=== PATIENT | female | born 1990 | race Caucasian/White ===

== ENCOUNTER 2021-09-13 22:56 | Emergency (ER) | payer BC, SELFPAY ==
[2021-09-13 23:04] VITALS: BP 127/81; PULSE 93; RESP 16; TEMP 36.9; O2SAT 98
--- NOTE | 2021-09-13 23:15 | DI.CT_ITS ---
Exam(s) CT ABDOMEN PELVIS W EXAM: CT ABDOMEN PELVIS W INDICATION: right sided abdomen pain. COMPARISON: No exams were available for comparison TECHNIQUE: FINDINGS: CT examination of the abdomen and pelvis was performed with intravenous infusion of 100 cc of Omnipaq ue 350. Images obtained through the lung bases are unremarkable. The liver is unremarkable in appearance with apparent incidental left lobe hepatic cyst noted. Gallbladder and bile ducts are CT normal. Pancreas appears normal. Spleen is unremarkable in appearance except for tiny calcifications consistent with healed granulomas .. Adrenals appear normal. The kidneys are unremarkable with no evidence of hydronephrosis, nephrolithiasis, or renal mass.. Ur inary bladder unremarkable. Abdominal aorta is of normal diameter and no major vascular abnormality is seen. No abdominal wall hernia. No abdominal or pelvic adenopathy. BOOKING AGENT structures appear intact with an IUD in appropriate position in the uterus.. Appendix is normal. No evidence of diverticulitis or bowel obstruction. IMPRESSION: Negative CT examination of the abdomen and pelvis. RADIATION DOSE DELIVERED: 746.64mGy.cm Total DLP 746.64mGy.cm Total DLP !Error CTDIvol RADIATION OPTIMIZATION: All CT scans at this facility use at least one of these dose optimization te chniques: automated exposure control; mA and/or kV adjustment per patient size (includes targeted exa ms where dose is matched to clinical indication); or iterative reconstruction.
--- NOTE | 2021-09-13 23:30 | ED.GENADUL_ITS ---
Discharge Plan Disposition Patient Disposition: HOME Condition: Stable Discharge Details Chief Complaint: Abd Prob Clinical Impression: Abdominal pain Primary Care Provider: None,None ED Provider: Keith Jorgensen Home Meds and New Rx's Prescriptions: No Action No Known Home Meds Discharge Instructions Instructions: Abdominal Pain (ED) Additional Instructions: your blood work and cat scan did not show concerning findings at this time and your iud appeared in normal position follow up with your primary care provider if symptoms continue if you feel more ill, have severe worsening pain or persistent vomiting return to the emergency department Medical Decision Making 31 yo female who denies chronic medical problems comes in with abdominal pain and cramping starting when she woke up this morning. She states she has never had pain like this before and has denies prior abdominal surgeries. She can't think of anything that makes the pain better or worse. she localizes the pain to the lower abdomen and states it is sharp and cramping, no vaginal bleeding or discharge, no fevers, chills, n/v. She arrives stable, has no upper abdomen tenderness, is tender in the rlq to deep palpation. Suspect this could be ovarian cyst but given location will obtain ct to evaluate for appendicitis. pt stable and feels improved, only has minimal tenderness with deep palpation to the rlq no guarding. CT and labs unremarkable. Discussed with pt and given reassuring workup feel she is stable for d/c. She will f/u with pcp if symptoms continue and return precautions given Differential Diagnosis Differential Diagnosis: appendicitis, ovarian cyst Imaging Data Radiologic Study: Attestation: I personally reviewed and interpreted this imaging study as follows: Imaging: CT Scan Radiologist's impression: no acute findings Lab Data Lab results reviewed: Yes I reviewed the patient's lab results. HPI General Mode of arrival: ambulatory . Date/Time Provider Initiated Documentation: 09/13/21 23:01 . Limitations to Documentation: no limitations . Information obtained by: patient . History of Present Illness 31 year old F presents to the emergency department with the chief complaint of abdominal pain, described as moderate, Quality is described as aching, Patient started experiencing this hour(s) (12) and it has been constant. No relieving factors improve symptom(s), No exacerbating factors reported . Patient notes no other symptoms.. Patient did receive the following treatments prior to arrival, none Related Data Home Medications Medication Instructions Recorded Confirmed Unknown [No Known Home Meds] 09/13/21 09/13/21 Allergies Allergy/AdvReac Type Severity Reaction Status Date / Time sulfamethoxazole Allergy Unverified 09/13/21 23:14 [From Bactrim] trimethoprim [From Bactrim] Allergy Unverified 09/13/21 23:14 General Stated Complaint: Abd Prob MARGE: 3 Review of Systems All systems reviewed & are unremarkable except as noted in HPI and below Constitutional Constitutional: Denies chills and Denies fever(s) Cardiovascular Cardiovascular: Denies chest pain and Denies dyspnea Respiratory Respiratory: Denies cough and Denies dyspnea Gastrointestinal Gastrointestinal: Denies nausea and Denies vomiting Genitourinary Genitourinary: Denies dysuria Musculoskeletal Musculoskeletal: Denies joint swelling Integumentary/Breasts Skin/Breast: Denies rash PFSH All Active Problems (Updated 09/14/21 @ 00:59 by Keith Jorgensen MD) Abdominal pain (Acute) Medical History (Updated 09/14/21 @ 00:59 by Keith Jorgensen MD) Female bladder prolapse IBS (irritable bowel syndrome) IBS (irritable bowel syndrome) Social History Smoking/Tobacco Use Status: Never Smoking risk assessment performed?: Yes Alcohol Intake: never Drug use: Never Substance use type: does not use Do you feel safe at home: Yes Do you feel safe in your relationship?: Yes Exam Const General: no acute distress Orientation: alert HENMO Head: normal to inspection Ears: external ears normal General nose exam: external nose normal Mouth: moist mucous membranes Eyes General: appearance normal, both eyes and all related structures Neck Neck: normal visual inspection Resp Effort & Inspection: normal respiratory effort and able to speak in complete sentences Cardio Rate: regular rate GI Palpation: soft and tender Skin General skin exam: no rashes or lesions noted Neuro General: patient alert and patient oriented x3 Extrem General: normal to inspection Psych Mental Status: mental status grossly normal Course Vital Signs Vital signs: Vital Signs Temperature 36.9 C 09/13/21 23:04 Pulse 93 H 09/13/21 23:04 Respiratory Rate 16 09/13/21 23:04 Blood Pressure 127/81 09/13/21 23:04 Pulse Oximetry 98 09/13/21 23:04 Temperature 36.9 C 09/13/21 23:04 Temperature Source Tympanic 09/13/21 23:04 Pulse 93 H 09/13/21 23:04 Respiratory Rate 16 09/13/21 23:04 Respiratory Effort Non-Labored 09/13/21 23:09 Blood Pressure 127/81 09/13/21 23:04 Blood Pressure Position Sitting 09/13/21 23:04 Pulse Oximetry 98 09/13/21 23:04 Oxygen Delivery Method Room Air 09/13/21 23:04 Oxygen Flow Rate 0 09/13/21 23:04 Pain Level 5 09/13/21 23:04 Comment 09/13/21 23:04
[2021-09-13 23:40] LABS: Abs Immature Grans 0.03 10^3/uL (0.0-0.06); Absolute Basophil Count 0.05 10^3/uL (0.0-0.2); Absolute Eosinophil Count 0.22 10^3/uL (0.0-0.7); Absolute Lymphocyte Count 2.59 10^3/uL (1.2-3.4); Absolute Monocyte Count 0.72 10^3/uL (0.1-0.8); Basophils % 0.5; Eosinophils % 2.1; HCT 38.1 % (36.0-46.0); HGB 12.9 g/dL (11.2-15.7); Immature Grans % 0.3; Lymphocytes % 25.1; MCH 31.1 pg (27.0-33.0); MCHC 33.9 % (32.0-36.0); MCV 92 fL (80-95); MPV 9.5 fL (8.0-11.0); Platelet Count 225 10^3/uL (130-400); RBC 4.15 10^6/uL (3.93-5.22); RDW 11.6 % (11.7-14.6); RDW-SD 39.1 fL; WBC 10.31 10^3/uL (4.4-10.8)
[2021-09-13 23:48] LABS: Bilirubin Negative (Negative); Blood Negative (Negative); Clarity Sl Cloudy (Clear); Glucose Negative (Negative); Ketones 15 mg/dL (Negative); Leukocyte Esterase Negative (Negative); Nitrite Negative (Negative); Specific Gravity >= 1.030 (1.005-1.025); Urobilinogen 0.2 EU/dL (Up TO 0.2); pH 5.5 (5-8)
[2021-09-13 23:54] LABS: ALT 24 U/L (14-59); AST 19 U/L (15-37); Albumin 4.2 g/dL (3.4-5.0); Alkaline Phosphatase 42 U/L (46-116); Anion Gap 9.5 mmol/L (3-11); BUN 10 mg/dL (7-18); Bilirubin, Total 0.5 mg/dL (0.2-1.0); CO2 24.5 mmol/L (21.0-32.0); CREATININE 0.6 mg/dL (0.55-1.02); Calcium 8.5 mg/dL (8.5-10.1); Chloride 105 mmol/L (98-107); Glucose 104 mg/dL (74-106); Lipase 103 U/L (73-393); Potassium 3.4 mmol/L (3.5-5.1); Sodium 139 mmol/L (136-145); Total Protein 7.4 g/dL (6.4-8.2)
[2021-09-13] MEDS: Omnipaque 350 MG/ML 100 ML BTL IJ (23:54)
[2021-09-13] MEDS: Normal Saline Flush 10 ML SYR IVP (23:56)
[2021-09-14] MEDS: Ketorolac 15 MG/ML VIAL IVP (00:08)
[2021-09-14] MEDS: Normal Saline 1,000 ML 1000 ML IV (00:09)
--- NOTE | 2021-09-14 00:44 | DI.VRAD_ITS ---
PROCEDURE INFORMATION: Exam: CT Abdomen And Pelvis With Contrast Exam date and time: 09/13/2021 23:56 Age: 31 years old Clinical indication: Abdominal pain; Localized; Patient HX: Right sided abd pain for 1 day, loose stools TECHNIQUE: Imaging protocol: Computed tomography of the abdomen and pelvis with contrast. Radiation optimization: All CT scans at this facility use at least one of these dose optimization techniques: automated exposure control; mA and/or kV adjustment per patient size (includes targeted exams where dose is matched to clinical indication); or iterative reconstruction. Contrast material: OMNIPAQUE 350; Contrast volume: 84 ml; Contrast route: INTRAVENOUS (IV); COMPARISON: No relevant prior studies available. FINDINGS: Liver: Benign-appearing hepatic cyst. No hepatic masses. Gallbladder and bile ducts: No calcified stones. No ductal dilation. Pancreas: No ductal dilation. No masses. Spleen: Small splenic calcifications compatible with benign granulomata. Adrenal glands: No mass. Kidneys and ureters: No hydronephrosis. No renal masses. Stomach and bowel: No obstruction. No mucosal thickening. Appendix: No evidence of appendicitis. Intraperitoneal space: Small cul-de-sac free fluid within physiologic limits. Vasculature: No abdominal aortic aneurysm. Lymph nodes: No significantly enlarged lymph nodes. Urinary bladder: Unremarkable as visualized. Reproductive: IUD in the uterus in the expected position. Bones/joints: No acute fracture. Soft tissues: No suspicious lesions. IMPRESSION: 1. No acute findings. 2. Incidental findings as described. Dictated and Authenticated by: Cassandra Goldberg MD. Ordering:CLINTON Parker MD
[2021-09-14 01:15] VITALS: BP 121/79; PULSE 83; RESP 16; O2SAT 99
== END 2021-09-14 01:15 | disposition home or self-care (01) ==
PROVIDERS: Emergency Provider Emergency Medicine
DX: R10.31 Right lower quadrant pain (principal)
CPT/HCPCS: 80053; 81025; 83690; 96361; 96374; 99285; 74177; 81003; 85025; 99284; J1885; J3490